=== PATIENT | female | born 1985 | race Caucasian/White ===

== ENCOUNTER 2022-01-10 12:26 | Emergency (ER) | payer SELFPAY ==
[2022-01-10 12:52] VITALS: PULSE 71
[2022-01-10 13:31] VITALS: BP 154/96
== END 2022-01-10 12:59 | disposition home or self-care (01) ==
LOC: KA.ED 12:26
DX: S46.911A Strain of unspecified muscle, fascia and tendon at shoulder and upper arm level, right arm, initial encounter (principal); W22.8XXA Striking against or struck by other objects, initial encounter
CPT/HCPCS: 73030-RT; 73060-RT; 99283